=== PATIENT | female | born 1970 | race Two or more races ===

== ENCOUNTER 2023-06-02 06:05 | Day surgery (SDC) | payer OTHER ==
[2023-06-02] MEDS ORDERED: CLINDAMYCIN PHOSPHATE 150 MG/ML (900mg) ONE (08:40)
[2023-06-02] MEDS ORDERED: GENTAMICIN SULFATE 40 MG/ML VIAL ONE (15:31)
[2023-06-02] MEDS ORDERED: POVIDONE-IODINE 118 ML BOTT TOP ONE ×3 (15:32→16:30)
[2023-06-02] MEDS ORDERED: POVIDONE-IODINE SCRUB 118 ML BOTT TOP ONE ×2 (15:32→16:30)
[2023-06-02] MEDS ORDERED: CEFAZOLIN SODIUM 1,000 MG VIAL ONE (15:32)
[2023-06-02] MEDS ORDERED: GENTAMICIN SULFATE 2.5 MG/ML (Adulto) IV ONE (16:30)
[2023-06-02] MEDS ORDERED: CLINDAMYCIN PHOSPHATE 150 MG/ML (900mg) IV ONE (16:30)
[2023-06-02] MEDS ORDERED: BUPIVACAINE HCL 30 ML VIAL IJ ONE (16:30)
[2023-06-02] MEDS ORDERED: CEFAZOLIN SODIUM 1,000 MG VIAL IV ONE (16:30)
== END 2023-06-02 21:20 | disposition home or self-care (01) ==
LOC: CIR.AMB 06:05
PROVIDERS: ATTEND Surgery
DX: D05.11 Intraductal carcinoma in situ of right breast (principal); N60.81 Other benign mammary dysplasias of right breast; R59.0 Localized enlarged lymph nodes; N60.82 Other benign mammary dysplasias of left breast; N62 Hypertrophy of breast; Z90.13 Acquired absence of bilateral breasts and nipples; I10 Essential (primary) hypertension; D48.62 Neoplasm of uncertain behavior of left breast
CPT/HCPCS: 19303; 19340; 38525; A9541